=== PATIENT | female | born 1985 | race African-American/Black ===

== ENCOUNTER 2017-11-03 07:34 | Emergency (ER) | payer OTHER ==
[~2017-11-03] VITALS: Ht 147.3 cm; Wt 59.0 kg
[~2017-11-03 07:34] MED LIST: APAP500; BENTYL20 MG PO; FLEXERIL PO; FLONASE 0.05%50 MCG NASAL; IBUPROFEN 600600 M1 PO; LOMOTIL TABLET1 EACH PO; PERCOCET 5-3251 EACH PO; SLEEP TABS25 MG; SUDOGEST30 MG PO; TESSALON PERLE100 MG PO
[2017-11-03] MEDS ORDERED: AMOXICILLIN500 M1 PO (08:02)
[2017-11-03 08:21] VITALS: BP 125/79
== END 2017-11-03 08:23 | disposition home or self-care (01) ==
LOC: ER 07:34
DX: J02.0 Streptococcal pharyngitis (principal); K64.9 Unspecified hemorrhoids; Z88.5 Allergy status to narcotic agent